=== PATIENT | female | born 1980 | race Two or more races ===

== ENCOUNTER 2020-10-19 09:35 | Emergency (ER) | payer OTHER ==
[2020-10-19 09:38] VITALS: BP 129/79; PULSE 90; TEMP 98.1; BMI 41.1
[2020-10-19] MEDS ORDERED: predniSONE 20 MG TABLET (UD) PO ONE (09:53)
[2020-10-19] MEDS ORDERED: ALBUTEROL SO4 2.5/IPRATROPIUM 0.5 INH SOL 3 ML VIAL.NEB. NEB ONE (09:56)
[2020-10-19] MEDS ORDERED: predniSONE 20 MG TABLET (UD) ONE (09:56)
[2020-10-19] MEDS: ALBUTEROL SO4 2.5/IPRATROPIUM 0.5 INH SOL 3 ML VIAL.NEB. NEB SCH ×4 (10:08→10:53)
[2020-10-19] MEDS ORDERED: LORATADINE 10 MG TABLET PO ONE (10:50)
[2020-10-19] MEDS ORDERED: LORATADINE 10 MG TABLET ONE (10:56)
== END 2020-10-19 11:01 | disposition home or self-care (01) ==
LOC: JERFT 09:35
PROC: 3E0F7GC Introduction of Other Therapeutic Substance into Respiratory Tract, Via Natural or Artificial Opening (ICD-10-PCS; principal; 2020-10-19)
DX: J45.909 Unspecified asthma, uncomplicated (principal)
CPT/HCPCS: 99285-25

== ENCOUNTER 2021-10-30 19:19 | Emergency (ER) | payer OTHER ==
[2021-10-30 19:43] VITALS: BP 122/69; PULSE 83; TEMP 97.5; BMI 40.3
[2021-10-30] MEDS ORDERED: MAG HYDROX/AL HYDROX/SIMETH -MYLANTA- ORAL SUSPENSION PO ONE (20:51)
[2021-10-30] MEDS ORDERED: MAG HYDROX/AL HYDROX/SIMETH 30 ML UNIT-DOSE CUP ONE (21:19)
== END 2021-10-31 00:39 | disposition home or self-care (01) ==
LOC: JERFT 19:19
DX: K30 Functional dyspepsia (principal)
CPT/HCPCS: 99283-25

== ENCOUNTER 2023-06-27 21:16 | Emergency (ER) | payer OTHER ==
[2023-06-27 21:22] VITALS: TEMP 98.1; BMI 35.5
[2023-06-27 23:40] LABS: EPI CELLS 5 /uL (0-25.1); HYALINE CASTS 1 /uL (0-3.1); PH,URINE 6.5 (5.0-8.0); URINE APPEARANCE CLEAR; URINE BACTERIA 67 /uL (0-1359); URINE BILIRUBIN NEGATIVE (NEGATIVE); URINE COLOR YELLOW; URINE GLUCOSE (UA) NEGATIVE (NEGATIVE); URINE KETONE TRACE (NEGATIVE); URINE LEUK ESTERASE TRACE (NEGATIVE); URINE NITRITE NEGATIVE (NEGATIVE); URINE PROTEIN NEGATIVE (NEGATIVE); URINE RBC 293 /uL (0-23.9); URINE UROBILINOGEN 0.2 mg/dL (0.2-1.0); URINE WBC 78 /uL (0-25.8)
[2023-06-27] MEDS ORDERED: ONDANSETRON *ODT* 4 MG TABLET ONE (23:52)
[2023-06-27] MEDS: ONDANSETRON *ODT* 4 MG TABLET SL ONE (23:52)
[2023-06-28 01:07] LABS: BASO % 0.5 % (0-2.0); EOS % 1.5 % (0-4.5); HEMATOCRIT 40.3 % (32.4-45.2); HEMOGLOBIN 13.7 GM/dL (10.7-15.3); MCH 29.4 pg (25.7-33.7); MCHC 33.9 g/dl (32.0-36.0); MEAN CELL VOLUME 86.8 fl (80-96); PLATELET COUNT 257 10^3/uL (134-434); RBC 4.64 M/mm3 (3.60-5.2); WHITE BLOOD COUNT 14.8 K/mm3 (4.0-10.0)
[2023-06-28 01:20] LABS: POTASSIUM 4.2 mmol/L (3.5-5.1)
[2023-06-28 01:21] LABS: CALCIUM 9.2 mg/dL (8.5-10.1)
[2023-06-28 01:23] LABS: ALBUMIN 3.6 g/dl (3.4-5.0); BLOOD UREA NITROGEN 12.8 mg/dL (7-18)
[2023-06-28 01:25] LABS: CREATININE 0.7 mg/dL (0.55-1.3)
[2023-06-28 01:27] LABS: BILIRUBIN,TOTAL 0.7 mg/dL (0.2-1)
[2023-06-28 01:28] LABS: TOT PROT 7.5 g/dl (6.4-8.2)
[2023-06-28 01:35] LABS: POTASSIUM 4.2 mmol/L (3.5-5.1)
[2023-06-28 01:37] LABS: CALCIUM 9.4 mg/dL (8.5-10.1)
[2023-06-28 01:39] LABS: BLOOD UREA NITROGEN 12.3 mg/dL (7-18)
[2023-06-28 01:41] LABS: CREATININE 0.7 mg/dL (0.55-1.3)
[2023-06-28 01:43] LABS: BILIRUBIN,TOTAL 0.7 mg/dL (0.2-1); TOT PROT 7.8 g/dl (6.4-8.2)
[2023-06-28 02:13] VITALS: BP 119/69; PULSE 71; RESP 16
[2023-06-28] MEDS: FAMOTIDINE 20 MG TABLET PO ONE (02:32)
[2023-06-28] MEDS: SODIUM CHLORIDE 0.9% 500 ML INFUS.BAG IV ONE (02:32)
== END 2023-06-28 02:35 | disposition home or self-care (01) ==
LOC: JER 21:16 → JERFT 21:16 → JER 06-28 02:35
DX: R11.0 Nausea (principal); R30.0 Dysuria; R10.30 Lower abdominal pain, unspecified
CPT/HCPCS: 36415; 80053; 81003; 84703; 85025; 87086; 87491; 87591; 99283-25; Q0162